=== PATIENT | female | born 1960 | race Caucasian/White ===

== ENCOUNTER 2020-06-13 09:09 | Outpatient (REF) | payer MEDICAID, SELFPAY ==
--- NOTE | ~2020-06-13 | US_ITS ---
EXAMINATION: US SOFT TISSUE NECK CLINICAL INFORMATION: Pain in the throat region. COMPARISON: None TECHNIQUE: Ultrasound of the neck soft tissues is performed with high-frequency greenberg-scale imaging and color Doppler. FINDINGS: Imaging through the anterior and posterior neck reveals no focal abnormality for the very small nonspecific lymph nodes seen. The largest lymph node in left neck measures 0.9 x 0.4 x 0.5 cm. US/US soft tiss head and/or neck IMPRESSION: 1. No abnormal mass or abnormal size lymph nodes seen. 2. If clinically indicated, further evaluation of the neck soft tissues and nodes may be performed with CT soft tissue neck with intravenous contrast.
== END 2020-06-13 09:10 | disposition home or self-care (01) ==
LOC: HO.US 09:09
PROVIDERS: Visit Provider Emergency Medicine
DX: R07.0 Pain in throat (principal)
CPT/HCPCS: 76536

== ENCOUNTER 2022-12-24 13:59 | Outpatient (REF) | payer MEDICAID, SELFPAY ==
[2022-12-24 16:37] LABS: Anion Gap 14 (12-20); Blood Urea Nitrogen 14 mg/dL (9-16); Calcium 9.9 mg/dL (8.4-10.2); Carbon Dioxide 28 mmol/L (22-29); Chloride 106 mmol/L (96-108); Estimated Glomerular Filt Rate > 60; Glucose Random 82 mg/dL (60-115); Potassium 3.9 mmol/L (3.3-5.1); Sodium 144 mmol/L (135-145)
== END 2022-12-24 14:00 | disposition home or self-care (01) ==
LOC: HO.HHCL 13:59
PROVIDERS: Visit Provider Internal Medicine
DX: I10 Essential (primary) hypertension (principal)
CPT/HCPCS: 36415; 80048

== ENCOUNTER 2023-05-14 09:50 | Outpatient (REF) | payer MEDICAID, SELFPAY ==
--- NOTE | ~2023-05-14 | XR_ITS ---
EXAMINATION: XR SHOULDER, LEFT CLINICAL INFORMATION: Chronic pain. COMPARISON: None available. TECHNIQUE: AP external rotation, Grashey, scapular Y, and axillary views of the left shoulder. FINDINGS: Bony alignment and mineralization are normal. The glenohumeral joint is intact and shows minimal osteoarthritic change. The acromioclavicular and coracoclavicular intervals are normal. No fracture or dislocation is seen. There is a tiny distal acromial undersurface osteophyte, and there is significant cortical irregularity and subcortical cyst formation of the greater tuberosity of the proximal left humerus. No soft tissue calcification or foreign body is seen. There is no left pneumothorax. XR/XR shoulder LT min 2V IMPRESSION: 1. 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 2. Findings suggest left rotator cuff impingement, without nathen calcific tendinitis noted.
== END 2023-05-14 09:51 | disposition home or self-care (01) ==
LOC: HO.HHCX 09:50
PROVIDERS: Visit Provider Internal Medicine
DX: M25.512 Pain in left shoulder (principal); G89.29 Other chronic pain
CPT/HCPCS: 73030

== ENCOUNTER 2023-08-25 16:18 | Outpatient (REF) | payer MEDICAID, SELFPAY ==
[2023-08-25 20:05] LABS: Alanine Aminotransferase 29 U/L (0-31); Albumin Level 4.4 g/dL (3.5-5.0); Alkaline Phosphatase 75 U/L (39-117); Anion Gap 15 (12-20); Aspartate Amino Transferase 22 U/L (5-31); Bilirubin Direct < 0.2 mg/dL (0.0-0.5); Bilirubin Total 0.2 mg/dL (0.0-1.0); Blood Urea Nitrogen 22 mg/dL (9-16); Carbon Dioxide 27 mmol/L (22-29); Chloride 106 mmol/L (96-108); Cholesterol 216 mg/dL (<200); Estimated Glomerular Filt Rate > 60; Glucose Random 84 mg/dL (60-115); HDL Cholesterol 49 mg/dL (>40); LDL Cholesterol Calculated 118 mg/dL (<100); Potassium 3.9 mmol/L (3.3-5.1); Sodium 144 mmol/L (135-145); Total Protein 7.6 g/dL (6.5-8.0); Triglycerides 249 mg/dL (<150)
[2023-08-25 22:04] LABS: Reflex LDLD? No
== END 2023-08-25 16:19 | disposition home or self-care (01) ==
LOC: HO.HHCL 16:18
PROVIDERS: Visit Provider Internal Medicine
DX: E78.2 Mixed hyperlipidemia (principal); I10 Essential (primary) hypertension
CPT/HCPCS: 36415; 80053; 80061; 82248

== ENCOUNTER 2024-02-16 | Outpatient (REF) | payer MEDICAID, SELFPAY | END 2024-02-16 00:01 | disposition home or self-care (01) | LOC: HO.HHCLNP | PROVIDERS: Visit Provider Internal Medicine | DX: R10.31 Right lower quadrant pain (principal) | CPT/HCPCS: 87086 ==

== ENCOUNTER 2024-02-18 13:47 | Outpatient (REF) | payer MEDICAID, SELFPAY ==
[2024-02-18 16:08] LABS: MANUAL DIFF FLAG NO
[2024-02-18 16:21] LABS: Basophils Percent Auto 0.5 % (0-2); Eosinophils Percent Auto 0.2 % (0-4); Hematocrit 38.3 % (37.0-47.0); Hemoglobin 12.7 g/dl (12.0-16.0); Imm Gran Abs Auto 0.02 X10*3/uL (0.00-0.03); Imm Gran Pct Auto 0.3 % (0.0-0.4); Lymphocytes Absolute Auto 1.8 X10*3/uL (1.2-4.9); Lymphocytes Percent Auto 27.6 % (20-40); Mean Corpuscular HGB Conc 33.2 g/dl (31.0-35.0); Mean Corpuscular Hemoglobin 30.5 pg (27.0-33.0); Mean Corpuscular Volume 92.1 fL (80.0-98.0); Mean Platelet Volume 10.5 fL (9.4-12.3); Monocytes Absolute Auto 0.6 X10*3/uL (0.1-1.2); Monocytes Percent Auto 8.7 % (2-11); Neutrophils Percent Auto 62.7 % (45-73); Platelet Count 267 X10*3/uL (160-400); Red Blood Count 4.16 X10*6/uL (4.20-5.50); Red Cell Distribution Width 12.4 % (11.0-16.0); White Blood Count 6.3 X10*3/uL (4.8-10.8)
[2024-02-18 16:55] LABS: Erythrocyte Sedimentation Rate 19 MM/HR (0-20)
[2024-02-18 18:22] LABS: Alanine Aminotransferase 36 U/L (0-31); Albumin Level 4.3 g/dL (3.5-5.0); Alkaline Phosphatase 76 U/L (39-117); Anion Gap 12 (12-20); Aspartate Amino Transferase 30 U/L (5-31); Bilirubin Total 0.3 mg/dL (0.0-1.0); Blood Urea Nitrogen 16 mg/dL (9-16); Calcium 9.6 mg/dL (8.4-10.2); Carbon Dioxide 27 mmol/L (22-29); Chloride 103 mmol/L (96-108); Estimated Glomerular Filt Rate > 60; Glucose Random 108 mg/dL (60-115); Sodium 138 mmol/L (135-145); Total Protein 7.5 g/dL (6.5-8.0)
== END 2024-02-18 13:48 | disposition home or self-care (01) ==
LOC: HO.HHCL 13:47
PROVIDERS: Visit Provider Internal Medicine
DX: R10.31 Right lower quadrant pain (principal)
CPT/HCPCS: 36415; 80053; 85025; 85652

== ENCOUNTER 2024-07-14 16:10 | Outpatient (REF) | payer MEDICAID, SELFPAY ==
--- OUTSIDE RECORDS SUMMARY | 2024-07-14 18:00 | XMS_ITS | Encounter Summary ---
Author Organization [employer] [facility] Address [address] [place] [address] [address] [place] [address] Care Team Providers Care Funds Development Director Name Role Phone Antoine Tuttle MD Primary Care Provide r Encounter Details Date Type Department Care Team (Latest Contact Info) Description 10/22/2018 Abstract [facility] CONVERSIONS Dental, Provider, DDS Social History Tobacco Use Types Packs/Day Years Used Date Smoking Tobacco: Never Assessed Comments Unknown Sex and Gender Information Value Date Recorded Sex Assigned at Female 02/03/2022 10:15 AM EDT Legal Sex Female 10:15 AM EDT Gender Identity Female 02/03/2022 10:15 AM EDT Sexual Orientation Straight 02/03/2022 10 :15 AM EDT documented as of this encounter Plan of Treatment Not on file documented as of this encounter Visit Diagnoses Not on filedocumented in this encounter Care Teams Funds Development Director Relationship Specialty Start Date End Date Antoine Tuttle MD [address] [place] [id number] PCP - General Internal Medicine 12/01/13 documented as of this encounter
--- OUTSIDE RECORDS SUMMARY | 2024-07-14 18:00 | XMS_ITS | Clinical Summary ---
Author Organization [facility] [employer] [facility] [employer] Address [address] [facility] [address] [place] [address] Care Team Providers Care Vocational Case Manager Name Role Phone Antoine Tuttle MD Primary Care Provide r Allergies Active Allergy Reactions Criticality Noted Date Comments Other Rash Low 12/04/2018 Espino (fruit) Medications loratadine (Claritin) 10 MG tablet Take 10 mg by mouth in the morning. 2 Active cyclobenzaprine (Flexeril) 5 MG tablet TAKE 1 TO 2 TABLETS BY MOUTH EVERY 8 HOURS NEEDED 2 Active clonazePAM (KlonoPIN) 0.5 MG tabletIndications :Depressive disorder TAKE 1 TABLET BY MOUTH jeffy hora BEFORE de abordar el tosin y puede repetir mientras javier en el tosin para la ansiedad 10 tablet 3 Active diphenhydrAMINE (BENADryl) 25 MG capsule TAKE 1 CAPSULE BY MOUTH ONCE DAILY NEEDED FOR SLEEP 30 capsule 3 3 Active meloxicam (Mobic) 15 MG tabletIndications :Acute pain of right shoulder Take 1 tablet (15 mg) by mouth in the morning. 30 tablet 3 4 Active fluticasone (Flonase) 50 MCG/ACT nasal spray INSTILL 2 SPRAYS IN EACH NOSTRIL ONCE DAILY 48 g 1 4 Active omeprazole (PriLOSEC) [address] capsule TAKE 1 CAPSULE BY MOUTH EVERY DAY BEFORE A MEAL 90 capsule 1 4 Active hydroCHLOROthiazi de (HYDRODiuril) 25 MG tabletIndications :Essential hypertension TAKE 1 TABLET BY MOUTH EVERY MORNING 90 tablet 4 Active lisinopril 20 MG tabletIndications :Essential hypertension TAKE 1 TABLET BY MOUTH EVERY MORNING 90 tablet 4 Active tamsulosin (Flomax) 0.4 MG 24 hr capsule Take 1 capsule (0.4 mg) by mouth Once per day. 30 capsule 4 Active butalbital-acetam inophen-caffeine 50-325-40 MG tabletIndications :History of headache TAKE 1 TABLET BY MOUTH EVERY 6 HOURS NEEDED 15 tablet 1 5 Active amoxicillin-clavu lanate (Augmentin) 875-125 MG tablet Take 1 tablet by mouth 2 times daily for 7 days. 14 tablet 5 07/09/19 25 Active Problems Problem Noted Date Diagnosed Date Diarrhea 07/13/2024 Assessment & Plan (07/13/2024 6:13 PM EDT): Unclear if related to change in dietary habits, increase carb intake. We discussed about increase hydration and, brat diet and advance to soft diet then to high- fiber diet for at least 1 to 2 weeks. Order stool tests and LFTs. Ordered abdominal ultrasound and follow-up with PCP Left leg swelling 07/04/2024 Varicose veins of both lower extremities with in flammation 11/19/2023 Assessment & Plan (11/19/2023 11:26 AM EDT): Pt with varicose veins,will refer to [facility] care 12/09/2022 Assessment & Plan (08/13/2023 3:13 PM EDT): Mammogram: 11/21/2022 Pap Smear: s/p SWATI 2016 Colonoscopy: [facility]. Dr Corona, 2014 Normal Vaccines:. Td: 07/18/2014 Assessment & Plan (12/09/2022 2:15 PM EDT): Mammogram: 11/21/2022 Pap Smear: s/p SWATI 2015 Colonoscopy: [facility]. Dr Corona, 2014 Normal Vaccines:. Td: 07/18/2014 Right groin pain 09/23/2022 Assessment & Plan (09/23/2022 10:52 AM EDT): Most likely adductor sprain, less likely DVT Due to hx DVT, I will order DVT studies Take Tylenol prn pain + Diclofenac gel to affected area Apply dry heat to affected area May need PT if sxs do not improve in 3w History of DVT (deep vein thrombosis) 09/23/2022 Chronic left shoulder pain 06/26/2022 Assessment & Plan (08/13/2023 3:19 PM EDT): Pt with previous c/o left shoulder pain, particuarly when lifting On previous exam, mild decreased ROM, anterior tenderness Suggestive of tendinosis. Pt went for PT evaluation, pt tells me she did not tolerate it She has been taking Meloxicam PRN and Collagen Plain films showed: Minimal osteoarthritic change of the left glenohumeral joint. Findings suggest left rotator cuff impingement, without nathen calcific tendinitis noted. Previous visit I referred her to Ortho for evaluation. Pt did not go Follow up if no improvement. Assessment & Plan (05/14/2023 9:27 AM EST): Pt with c/o left shoulder pain, particuarly when lifting On previous exam, mild decreased ROM, anterior tenderness Suggestive of tendinosis. Pt never had the PT evaluation I ordered Plan: refill (Meloxicam) Plain films ordered Ortho evalauation Follow up if no improvement Assessment & Plan (06/26/2022 3:28 PM EDT): Pt with new c/o right shoulder pain, particuarly when lifting On exam, mild decreased ROm, anterior tenderness Suggestive of tendinosis Plan: NSAIDS (meloxicam) PT eval Plain films Follow up if no improvement Hx of hematuria 03/07/2022 Assessment & Plan (03/11/2022 9:45 AM EST): Not complaining Negative work up as per [facility] urology that included a CT scan of the abdomen 07/20/2018 wnl and a cystoscopy on 10/06/11 NL History of headache 03/07/2022 Assessment & Plan (05/14/2023 9:16 AM EST): Previously c/o persistent bilateral headaches, not improving despite medical treatment. Also c/o forgetfulness. likely due to untreated VICTORINO Seen by Neurology Uses Fioricet PRN MRI of brain 11/2022 was normal aside from a small meningioma Assessment & Plan (12/09/2022 2:16 PM EDT): Previously c/o persistent bilateral headaches, not improving despite medical treatment. Also c/o forgetfulness. likely due to untreated VICTORINO Seen by Neurology currently not complaining MRI of brain 11/2022 was normal aside from a small meningioma Assessment & Plan (03/11/2022 9:44 AM EST): Televisit Previously c/o persistent bilateral headaches, not improving despite medical treatment. Also c/o forgetfulness. likely due to untreated VICTORINO Previously she was referred for a Neurology evaluation currently not complaining MRI of brain 12/01/2019 was normal Meningioma 03/07/2022 Assessment & Plan (05/14/2023 9:17 AM EST): Pt with previous c/o persistent intermittent symptoms of left sided facial numbness, tingling and heaviness, seen at [facility] work up was unrevealing. As part of her work up she had an MRI of brain was negative pt was referred Neurology, last seen 08/2020 Lyme antibodies were negative Pt was seen by Neurology, she had an MRI of the brain at [facility] that showed: a small incidental meningioma 11 mm x 9 x 10 along the floor of the left anterior cranial fossa medially. as well as white matter lesions in a non specific pattern without active blood-brain barrier breakdown one of which might be new since prior study from 2019. No lesions highly characteristic of MS Previous visit she told me all those symptoms had gone away Repeat MRI 11/2022 showed: No intracranial cause for the reported symptoms identified. No evidence of a regional brain parenchymal volume loss pattern. 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 Pt was referred to Neurosurgery by Neurologist. Assessment & Plan (12/09/2022 2:24 PM EDT): Pt with previous c/o persistent intermittent symptoms of left sided facial numbness, tingling and heaviness, seen at [facility] work up was unrevealing. As part of her work up she had an MRI of brain was negative pt was referred Neurology, last seen 08/2020 Lyme antibodies were negative Pt was seen by Neurology, she had an MRI of the brain at [facility] that showed: a small incidental meningioma 11 mm x 9 x 10 along the floor of the left anterior cranial fossa medially. as well as white matter lesions in a non specific pattern without active blood-brain barrier breakdown one of which might be new since prior study from 2019. No lesions highly characteristic of MS Previous visit she told me all those symptoms had gone away Repeat MRI 11/2022 showed: No intracranial cause for the reported symptoms identified. No evidence of a regional brain parenchymal volume loss pattern. 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 Pt was referred to Neurosurgery by Neurologist. Assessment & Plan (03/07/2022 4:07 PM EST): Resolved Pt with previous c/o persistent intermittent symptoms of left sided facial numbness, tingling and heaviness, denies any weakness, denies any slurred speech or any other associated symptoms. she was seen recently at [facility] work up was unrevealing. Of note previously Pt had c/o persistent dizziness, described as sensation of imbalance and spinning , not associated with change in positions, can present itself at rest or with movement, described as moderate and intermittent, associated with left leg numbness, pt also reports decreased hearing unclear etiology. As part of her work up she had an MRI of brain was negative pt was referred Neurology, last seen 08/2020 I discussed with pt if symptoms were to worsen or f she is to develop weakness, slurred speech or imbalance to present herself to the nearest ER Lyme antibodies were negative Pt was finally seen by Neurology, she had a repeat MRI of the brain at [facility] that showed: a small incidental meningioma 11 mm x 9 x 10 along the floor of the left anterior cranial fossa medially. as well as white matter lesions in a non specific pattern without active blood-brain barrier breakdown one of which might be new since prior study from 2019. No lesions highly characteristic of MS Previous visit she told me all those symptoms had gone away Chronic insomnia 03/07/2022 Assessment & Plan (03/11/2022 9:42 AM EST): Televisit Pt Has tried Melatonin in the past with no good results does not want to try anything adictive Uses Benadryl 25 mg po at bedtime PRN Discussed good sleep hygiene habits Hyperlipidemia 02/21/2022 Assessment & Plan (11/19/2023 11:20 AM EDT): Pt here for a follow up Patient with elevated lipids. Most recent lipid profile from: Lab Results Component Value Date TRIG 249 (H) 08/25/2023 TRIG 127 08/05/2022 CHOL 216 (H) 08/25/2023 LDLCHOLCAL 118 (H) 08/25/2023 HDL 49 08/25/2023 Pt stopped taking Atorvastatin after she developed shoulder muscle pain advised to try to adhere to a low cholesterol diet, counseled and educated about diet and exercise, Patient encouraged to come up with a personal goal for weight loss. Plan: Pt would like to try diet and exercise first, will repeat in 4 months Assessment & Plan (08/13/2023 3:22 PM EDT): Pt here for a follow up Patient with elevated lipids. Most recent lipid profile from: 08/05/2022 shows a total cholesterol of: 202 triglycerides of: 127 HDL of: 52 and LDL of: 126 Pt stopped taking Atorvastatin after she developed shoulder muscle pain advised to try to adhere to a low cholesterol diet, counseled and educated about diet and exercise, Patient encouraged to come up with a personal goal for weight loss. Repeat Lipid profile Assessment & Plan (05/14/2023 9:16 AM EST): Pt here for a follow up Patient with elevated lipids. Most recent lipid profile from: 08/05/2022 shows a total cholesterol of: 202 triglycerides of: 127 HDL of: 52 and LDL of: 126 Pt stopped taking Atorvastatin after she developed shoulder muscle pain advised to try to adhere to a low cholesterol diet, counseled and educated about diet and exercise, Patient encouraged to come up with a personal goal for weight loss. Repeat Lipid profile Assessment & Plan (12/09/2022 2:28 PM EDT): Pt here for a follow up Patient with elevated lipids. Most recent lipid profile from: 08/05/2022 shows a total cholesterol of: 202 triglycerides of: 127 HDL of: 52 and LDL of: 126 Pt stopped taking Atorvastatin after she developed shoulder muscle pain advised to try to adhere to a low cholesterol diet, counseled and educated about diet and exercise, Patient encouraged to come up with a personal goal for weight loss. Assessment & Plan (06/26/2022 9:43 AM EDT): Pt here for a follow up Patient with elevated lipids. Most recent lipid profile from: 05/08/2020 shows a total cholesterol of: 220 triglycerides of: 123 HDL of: 47 and LDL of: 148 Pt stopped taking Atorvastatin after she developed shoulder muscle pain Lipid profile ordered again pt did not have done the one I ordered back in March advised to try to adhere to a low cholesterol diet, counseled and educated about diet and exercise, Patient encouraged to come up with a personal goal for weight loss. Assessment & Plan (03/11/2022 9:46 AM EST): Televisit Patient with elevated lipids. Most recent lipid profile from: 05/08/2020 shows a total cholesterol of: 220 triglycerides of: 123 HDL of: 47 and LDL of: 148 LDL dropped from 160 to 148, pt is confident she can bring it underneath 130 with diet and exercise, before we consider another statin Pt stopped taking Atorvastatin after she developed shoulder muscle pain Lipid profile ordered advised to try to adhere to a low cholesterol diet, counseled and educated about diet and exercise, Patient encouraged to come up with a personal goal for weight loss. Allergic rhinitis due to pollen 10/16/2017 Assessment & Plan (03/11/2022 9:43 AM EST): Televisit Not complaining On Flonase and Loratadine PRN Obstructive sleep apnea syndrome 01/06/2017 Assessment & Plan (03/11/2022 9:42 AM EST): Televisit Doing well Finally pt underwent Sleep study that confirmed the diagnosis of Moderately severe VICTORINO. on 06/30/2018 she had a titration study recommendation was Auto Cpap with pressure of 6 to 16 cm Using machine at home with good results Essential hypertension 02/01/2015 Assessment & Plan (11/19/2023 12:41 PM EDT): Pt is here for a follow up BP today is elevated. She is not checking her BP at home She is on a regimen of: Hctz 25 mg po daily and Lisinopril 20 mg po daily. lytes, Bun and Cr 08/29/2023 wnl. Pt does not want to go up on the dose of meds yet. Wants to loose weight and see if that makes a difference Plan: Continue current regimen for now, check BP at home every other day and report once a week if systolic BP > 140 If BP still elevated on next visit will increase dose of Lisinopril Ct done while undergoing Hematuria work up showed : 2 to 3 mm pulmonary nodules rt lung base that according to radiologist in the absence of known malignancy or hx of smoking, no follow up was indicated. Assessment & Plan (08/13/2023 3:11 PM EDT): Pt is here for a follow up BP today is controlled She is on a regimen of: Hctz 25 mg po daily and Lisinopril 20 mg po daily. lytes, Bun and Cr 12/24/2022 wnl. Plan: Continue current regimen Ct done while undergoing Hematuria work up showed : 2 to 3 mm pulmonary nodules rt lung base that according to radiologist in the absence of known malignancy or hx of smoking, no follow up was indicated. Assessment & Plan (05/14/2023 9:15 AM EST): Pt is here for a follow up Patient BP today is controlled She is on a regimen of: Hctz 25 mg po daily and Lisinopril 20 mg po daily. lytes, bun and Cr 12/24/2022 wnl. Plan: Continue current regimen Ct done while undergoing Hematuria work up showed : 2 to 3 mm pulmonary nodules rt lung base that according to radiologist in the absence of known malignancy or hx of smoking, no follow up was indicated. Assessment & Plan (12/09/2022 2:13 PM EDT): Pt is here for a follow up Patient BP is controlled She is on a regimen of: Hctz 25 mg po daily and Lisinopril 20 mg po daily. lytes, bun and Cr 04/22/2022 wnl. Plan: Continue current regimen Ct done while undergoing Hematuria work up showed : 2 to 3 mm pulmonary nodules rt lung base that according to radiologist in the absence of known malignancy or hx of smoking, no follow up was indicated. Assessment & Plan (09/23/2022 10:53 AM EDT): Uncontrolled today, likely due to pain No change in meds, she will fu w PCP Check BP at home and recons prn if BP > 160/100 Assessment & Plan (06/26/2022 9:41 AM EDT): Pt is here for a follow up Patient BP is controlled, per her report She is on a regimen of: Hctz 25 mg po daily and Lisinopril 20 mg po daily. lytes, bun and Cr 04/22/2022 wnl. Plan: Continue current regimen Ct done while undergoing Hematuria work up showed : 2 to 3 mm pulmonary nodules rt lung base that according to radiologist in the absence of known malignancy or hx of smoking, no follow up was indicated. Assessment & Plan (03/11/2022 9:18 AM EST): Televisit f/u Patient BP is controlled, per her report She is on a regimen of: Hctz 25 mg po daily and Lisinopril 20 mg po daily. lytes, bun and Cr 12/20/2020 wnl. Today will order a repeat Plan: Continue current regimen Ct done while undergoing Hematuria work up showed : 2 to 3 mm pulmonary nodules rt lung base that according to radiologist in the absence of known malignancy or hx of smoking, no follow up was indicated. Depressive disorder 10/16/2011 Assessment & Plan (03/11/2022 9:44 AM EST): Televisit Pt [place] She has also a Hx of Panic attacks. She is currently on Fluoxetine 40 mg op daily And uses Klonopin 0.5 prn BID for panic attacks Plan: Continue current regimen She has been referred for psychotherapy but was never seen. Obesity 10/16/2011 Assessment & Plan (05/14/2023 9:22 AM EST): Discussed diet and exercise Assessment & Plan (06/26/2022 3:09 PM EDT): Discussed diet and exercise Pt was able to loose 5 lbs since last visit I congratulated her in her efforts Assessment & Plan (03/11/2022 9:43 AM EST): Discussed diet and exercise Resolved Problems Problem Noted Date Diagnosed Date Resolved Date Hip pain 10/16/2017 03/07/2022 Iron deficiency anemia 02/01/201503/07 Lumbago 04/06/1958 03/11/2022 Encounters Date Type Department Care Team Description 07/13/2024 5:40 PM EDT Office Visit [facility] [address] [place] [id number] Cary Gibson MD Diarrhea, unspecified type (Primary Dx); Periumbilical mass 07/01/2024 2:20 PM EDT Office Visit [facility] [address] [place] [phone] Melissa Worthy MD Left leg swelling (Primary Dx); Neck pain 06/17/2024 Population Health Risk Score [facility] [address] [id number] Provider, Population Health Generic 06/08/2024 Telephone [facility] MED[facility] [address] [place] [phone] Antoine Tuttle MD September05/12/2024 Refill [facility] [address] [place] [address] Antoine Tuttle MD History of headache from Last 3 Months Immunizations Name Administration Dates Next Due Influenza injectable quadriv alent preservative free 04/05/2019 Moderna Covid-19 Vaccine 12+ 05/01/2021,08/15/19 21,07/17/2020 TD (adult), 2 Lf tetanus tox oid, preservative free, adsorbed 12/20/2002 Tdap 07/18/2014 Social History Tobacco Use Types Packs/Day Years Used Date Smoking Tobacco: Never Smokeless Tobacco: Never Tobacco Cessation:Counseling Given: Not Answered Alcohol Use Standard Drinks/Week Comments Defer 0 (1 standard drink = 0.6 oz pur e alcohol) Depression Answer Date Recorded Patient Health Questionnaire-9 Score 0 11/19/2023 Patient Health Questionnaire-9 Score 0 11/19/2023 Last PHQ-9: Questionnaire Data Not on file 0 11/19/2023 Housing Stability Answer Date Recorded What is your housing situation today? I have anca ball 08/04/[address] you li ve. Do you have problems with any of the following? None of the above 08/04/2023 Food Insecurity Answer Date Recorded Within the past 12 months, y ou worried that your food would run out before you got money to buy more: Never True 08/04/2023 Within the past 12 months,th e food you bought just didn't last and you didn't have enough money to get more: Never True Transportation Answer Date Recorded In the past 12 months, has l ack of transportation kept you from medical appts, meetings, work or from getting things needed for daily living? No 08/04/2023 Utilities Answer Date Recorded In the past 12 months, has t he electric, gas, oil or water company threatened to shut off services in your home? No 08/04/2023 Depression Answer Date Recorded Patient Health Questionnaire-2 Score 0 11/19/2023 Comments Unknown Sex and Gender Information Value Date Recorded Sex Assigned at Female 02/03/2022 10:15 AM EDT Legal Sex Female 10:15 AM EDT Gender Identity Female 02/03/2022 10:15 AM EDT Sexual Orientation Straight 02/03/2022 10 :15 AM EDT Last Filed Vital Signs Vital Sign Reading Time Taken Comments Blood Pressure 139/83 07/13/2024 5:20 PM EDT Pulse 66 07/13/2024 5:20 PM EDT Temperature 36.1 ??C (96.9 ??F) 07/13/2024 5:20 PM ED T Respiratory Rate 16 07/13/2024 5:20 PM EDT Oxygen Saturation 98% 07/13/2024 5:20 PM EDT Inhaled Oxygen Concentration - - Weight 84.1 kg (185 lb 6 oz) 07/13/2024 5:20 PM EDT Height 162.6 cm (5' 4 ) 07/13/2024 5:20 PM EDT Body Mass Index 31.82 07/13/2024 5:20 PM EDT Plan of Treatment Health Maintenance Due Date Last Done Comments CT Colonography 1961 FIT DNA/Cologuard 1961 FIT 1961 FOBT 1961 HIV Screening 1961 Sigmoidoscopy 1961 Alcohol/Substance Use Screening 1973 Hepatitis C Screening 07/26/1979 Pneumococcal Vaccine: 50+ Years (1 of 1 - PCV) 07/26/2011 Zoster Vaccines (1 of 2) 07/26/2011 COVID-19 Vaccine (4 - season) 2023 05/01/2021, 08/14/2020, 07/17/2020 Influenza Vaccine (#1) 2023 04/05/2019 Colonoscopy 03/15/2024 03/15/2014 Colorectal Cancer Screening 03/15/2024 DTaP/Tdap/Td Vaccines (2 - Td or Tdap) 07/18/2024 07/18/2014, 12/20/2002 SDOH Screening 08/03/2024 08/04/2023 Depression Screening 11/18/2024 11/19/2023, 11/19/19 24 Mammogram 11/21/2024 11/21/2022, 0811/2022, 06/25/2021, Additional history exists Tobacco Screening 07/13/2025 07/13/2024 Lipid Panel 08/24/2028 08/25/2023, 05/0 05/2022, 12/20/2020, Additional history exists RSV Patients and Patients Aged 60 years or older (1 - 1-dose 75+ series) 2036 HIB Vaccines Aged Out No longer eligi ble based on patient's age to complete this topic HPV Vaccines Aged Out No longer eligi ble based on patient's age to complete this topic Hepatitis A Vaccines Aged Out No long er eligible based on patient's age to complete this topic Hepatitis B Vaccines Aged Out No long er eligible based on patient's age to complete this topic IPV Vaccines Aged Out No longer eligi ble based on patient's age to complete this topic Meningococcal Vaccine Aged Out No ricky tena eligible based on patient's age to complete this topic RSV under 20 months Aged Out No longe r eligible based on patient's age to complete this topic Rotavirus Vaccines Aged Out No longer eligible based on patient's age to complete this topic Procedures Procedure Name Priority Date/Time Associated Diagnosis Comments LIPID PANEL, STANDARD Routine 08/25/2023 4:20 PM EDT Essential hypertension HM MAMMOGRAPHY Routine 06/25/2021 COLONOSCOPY Routine 03/15/2014 from Last 3 Months or Most Recently Relevant to Health Maintenance Results * (ABNORMAL) Lipid Panel, Standard (08/25/2023 4:20 PM EDT) Triglycerides 249(H) <150 mg/dL [facility] Comment:Desirable Triglyceri de: less than 150 mg/dLBorderline High Triglyceride 150-199 mg/dLHigh Triglyceride: 200-499 mg/dLVery High Triglyceride: greater than or equal to 5OO mg/dL Cholesterol 216(H) <200 mg/dL [facility] Comment:Desirable Cholestero l: less than 200 mg/dLBorderline High Cholesterol: 200-239 mg/dLHigh Cholesterol: greater than 239 mg/dL LDL Cholesterol Calculated 118(H) <100 mg/dL [facility] Comment:Desirable LDL: less than 100 mg/dLNear Optimal/Above Optimal LDL: 110- 129 mg/dLBorderline High LDL: 130-159 mg/dLHigh LDL: 160-189 mg/dLVery High LDL: greater than or equal to 190 mg/dL HDL Cholesterol 49 >40 mg/dL [facility] Comment:Desirable HDL: great er than 40 mg/dL Note: This HDL assay may give artificially low results in patients with liver disease. Blood Venous blood specimen / Unknown 08/25/2023 4:20 PM EDT 08/25/2023 6:32 PM EDT us Antoine Esparza MD LAB BLOOD ORDERABLES Final Result [facility] [address] [place] [address] [phone] * Mammography (06/25/2021) Mammogram Bi-Rads Anatomical Region Laterality Modality Other us Historical Provider HEALTH MAINTENANCE Final Result * Colonoscopy (03/15/2014) Colonoscopy Normal Historical Provider HEALTH MAINTENANCE Edited Result - Final from Last 3 Months or Most Recently Relevant to Health Maintenance Insurance [facility] C3 HSN FULL Care Teams Vocational Case Manager Relationship Specialty Start Date End Date Antoine Tuttle MD [address] [place] [phone] PCP - General Internal Medicine 12/01/13
--- OUTSIDE RECORDS SUMMARY | 2024-07-14 18:00 | XMS_ITS | Encounter Summary ---
Author Organization [employer] Address [address] [place] [address] 7t [place] [address] Care Team Providers Care Alternative Energy Engineer Name Role Phone Antoine Tuttle MD Primary Care Provide r Reason for Referral * Imaging (Routine) - Authorized Specialty Diagnoses / Procedures Referred By Contac t Referred To Contact Radiology Diagnoses Diarrhea, unspecified type Periumbilical mass Procedures US Abdomen Complete Cary Gibson MD [address] [place] [phone] Phone: tel: fax: [address] Phone: tel: fax: Referral ID Status Reason Start Date Expiration Date V isits Requested Visits Authorized [id number] Authorized 07/13/2024 07/13/2025 1 1 Reason for Visit * Reason Comments Diarrhea GI Problem Encounter Details Date Type Department Care Team (Late st Contact Info) Description 07/13/2024 5:40 PM EDT Office Visit [facility] [address] [place], [place] [phone] Cary Gibson MD [address] [place] [address] [phone] Diarrhea, unspecified type (Primary Dx); Periumbilical mass Social History Tobacco Use Types Packs/Day Years [...] AM EDT documented as of this encounter Last Filed Vital Signs Vital Sign Reading [...] Mass Index 31.82 07/13/2024 5:20 PM EDT documented in this encounter Progress Notes * Cary Gibson MD - 07/13/2024 5:40 PM EDT Images from the original note were not included. SUBJECTIVE: Princess Fuchs is a 63 y.o. year old female who presents for Walk In Center/diarrhea . Denies recent illness, injury, or hospitalization. Acute Concerns: Patient complaining 2 to 4 months of postprandial episodes of soft, foul smell greenish/brown stools, approximately 2 to 3/day. She has not noticed any difference with the type of food that she has, she does not have postprandial abdominal pain, melena, BRBPR, vomiting or nausea. She does not have any fever and she has not noticed any weight loss. She she tries to eat mostly healthy foot but occasionally will skip meals or have fast food as she works 10+ hours per day and most of it overnight. She has not traveled within the past 6 months, there are no sick contacts. Social History Social History Narrative Not on file Patient Active Problem List Diagnosis Allergic rhinitis due to pollen Depressive disorder Essential hypertension Hyperlipidemia Obesity Obstructive sleep apnea syndrome Hx of hematuria History of headache Meningioma (CMS/HCC) Chronic insomnia Chronic left shoulder pain Right groin pain History of DVT (deep vein thrombosis) Preventative health care Varicose veins of both lower extremities with inflammation Left leg swelling Diarrhea No family history on file. Review of Systems Constitutional: Negative for chills, fatigue and fever. HENT: Negative for congestion, ear pain, nosebleeds, rhinorrhea, sinus pressure, sore throat and trouble swallowing. Eyes: Negative for pain and discharge. Respiratory: Negative for cough, chest tightness and shortness of breath. Cardiovascular: Negative for chest pain, palpitations and leg swelling. Gastrointestinal: Positive for diarrhea. Negative for abdominal pain, blood in stool, constipation and nausea. Endocrine: Negative for polydipsia and polyuria. Genitourinary: Negative for dysuria, frequency, genital sores, pelvic pain and vaginal discharge. Musculoskeletal: Negative for back pain and neck pain. Skin: Negative for rash. Allergic/Immunologic: Negative for environmental allergies. Neurological: Negative for dizziness, seizures, weakness, light-headedness and headaches. Hematological: Negative for adenopathy. Psychiatric/Behavioral: Negative for agitation, behavioral problems, self-injury and suicidal ideas. OBJECTIVE: Vitals: 07/13/24 1720 BP: 139/83 Pulse: 66 Resp: 16 Temp: 96.9 ??F (36.1 ??C) SpO2: 98% Physical Exam Constitutional: Appearance: Normal appearance. HENT: Right Ear: Tympanic membrane and ear canal normal. Left Ear: Tympanic membrane and ear canal normal. Mouth/Throat: Mouth: Mucous membranes are moist. Pharynx: No oropharyngeal exudate or posterior oropharyngeal erythema. Eyes: Pupils: Pupils are equal, round, and reactive to light. Cardiovascular: Rate and Rhythm: Normal rate and regular rhythm. Heart sounds: No murmur heard. Pulmonary: Breath sounds: Normal breath sounds. No wheezing. Abdominal: General: Bowel sounds are normal. Palpations: Abdomen is soft. There is mass (Overall, nontender 4 x 2 cm supraumbilical mass, mobile). Tenderness: There is no abdominal tenderness. Musculoskeletal: General: No tenderness. Normal range of motion. Cervical back: Normal range of motion. No tenderness. Skin: General: Skin is warm. Neurological: General: No focal deficit present. Mental Status: She is alert and oriented to person, place, and time. Psychiatric: Mood and Affect: Mood normal. Problem List Items Addressed This Visit Diarrhea - Primary Unclear if related to change in dietary habits, increase carb intake. We discussed about increase hydration and, brat diet and advance to soft diet then to high-fiber diet for at least 1 to 2 weeks. Order stool tests and LFTs. Ordered abdominal ultrasound and follow-up with PCP Relevant Orders Fecal Fat, Qualitative CDiff Gene PCR Hepatic Function Panel Stool culture Fecal Leukocycte Stain US Abdomen Complete Other Visit Diagnoses Periumbilical mass Relevant Orders US Abdomen Complete Follow Up: Current Outpatient Medications on File Prior to Visit Medication Sig Dispense Refill [] amoxicillin-clavulanate (Augmentin) 875-125 MG tablet Take 1 tablet by mouth 2 times daily for 7 days. 14 tablet 0 psiqrctvpo-rpmptkdrvbqaw-ueaijcko 50-325-40 MG tablet TAKE 1 TABLET BY MOUTH EVERY 6 HOURS NEEDED 15 tablet 1 clonazePAM (KlonoPIN) 0.5 MG tablet TAKE 1 TABLET BY MOUTH jeffy hora BEFORE de abordar el tosin y puede repetir mientras javier en el tosin para la ansiedad 10 tablet 0 cyclobenzaprine (Flexeril) 5 MG tablet TAKE 1 TO 2 TABLETS BY MOUTH EVERY 8 HOURS NEEDED diphenhydrAMINE (BENADryl) 25 MG capsule TAKE 1 CAPSULE BY MOUTH ONCE DAILY NEEDED FOR SLEEP 30 capsule 3 fluticasone (Flonase) 50 MCG/ACT nasal spray INSTILL 2 SPRAYS IN EACH NOSTRIL ONCE DAILY 48 g 1 hydroCHLOROthiazide (HYDRODiuril) 25 MG tablet TAKE 1 TABLET BY MOUTH EVERY MORNING 90 tablet 0 lisinopril 20 MG tablet TAKE 1 TABLET BY MOUTH EVERY MORNING 90 tablet 0 loratadine (Claritin) 10 MG tablet Take 10 mg by mouth in the morning. meloxicam (Mobic) 15 MG tablet Take 1 tablet (15 mg) by mouth in the morning. 30 tablet 3 omeprazole (PriLOSEC) [address] capsule TAKE 1 CAPSULE BY MOUTH EVERY DAY BEFORE A MEAL 90 capsule 1 tamsulosin (Flomax) 0.4 MG 24 hr capsule Take 1 capsule (0.4 mg) by mouth Once per day. 30 capsule 0 No current facility-administered medications on file prior to visit. documented in this encounter Miscellaneous Notes * Assessment & Plan Note - Cary Gibson MD - 07/13/2024 6:13 PM EDT Associated Problem(s): Diarrhea Unclear if related to change in dietary habits, increase carb intake. We discussed about increase hydration and, brat diet and advance to soft diet then to high-fiber diet for at least 1 to 2 weeks. Order stool tests and LFTs. Ordered abdominal ultrasound and follow-up with PCP documented in this encounter Plan of Treatment Scheduled Orders Name Type Priority Associated Diagnoses Orde r Schedule Fecal Fat, Qualitative Lab Routine Diarrhea, unspecified type Expected: 07/13/2024 (Approximate), Expires: 07/13/2025 CDiff Gene PCR Lab Routine Diarrhea, unspecified type Expected: 07/13/2024 (Approximate), Expires: 07/13/2025 Hepatic Function Panel Lab Routine Diarrhea, unspecified type Expected: 07/13/2024 (Approximate), Expires: 07/13/2025 Stool culture Microbiology Routine Diarrhea, unspecified type Expected: 07/13/2024 (Approximate), Expires: 07/13/2025 Fecal Leukocycte Stain Lab Routine Diarrhea, unspecified type Expected: 07/13/2024 (Approximate), Expires: 07/13/2025 US Abdomen Complete Imaging Routine Diarrhea, unspecified type Periumbilical mass Expected: 07/13/2024 (Approximate), Expires: 07/13/2025 documented as of this encounter Visit Diagnoses Diagnosis Diarrhea, unspecified type- Primary Periumbilical mass Abdominal or pelvic swelling, mass or lump, periumbilic documented in this encounter Additional Health Concerns Assessment Noted Time PHQ-9 Depression Total Score: 0 11/19/19 24 11:09 AM EDT documented as of this encounter Care Teams Alternative Energy Engineer Relationship Specialty Start Date End Date Antoine Tuttle MD [address] [place] [phone] PCP - General Internal Medicine 12/01/13 documented as of this encounter
--- OUTSIDE RECORDS SUMMARY | 2024-07-14 18:00 | XMS_ITS | Encounter Summary ---
Author Organization [employer] Address [address] 7[address] [place] [address] Care Team Providers Care Shop Foreman Name Role Phone Antoine Tuttle MD Primary Care Provide r Reason for Visit * Reason Onset Date Comments Appointment Request 04/08/2023 Medication Reaction 04/08/2023 Encounter Details Date Type Department Care Team ([facility] st Contact Info) Description 04/08/2023 Telephone [facility] [address] [place], [place] [phone] Antoine Tuttle MD [address] [place], [place] [phone] Appointment Request; Medication Reaction Social History Tobacco Use Types Packs/Day Years Used Date Smoking Tobacco: Never Smokeless Tobacco: Never Alcohol Use Standard Drinks/Week Comments Defer 0 (1 standard drink = 0.6 oz pur e alcohol) Housing Stability Answer Date Recorded What is your housing situation today? I have anca ball 01/19/[address] you li ve. Do you have problems with any of the following? None of the above 01/19/2023 Food Insecurity Answer Date Recorded Within the past 12 months, y ou worried that your food would run out before you got money to buy more: Never True 01/19/2023 Within the past 12 months,th e food you bought just didn't last and you didn't have enough money to get more: Never True Transportation Answer Date Recorded In the past 12 months, has l ack of transportation kept you from medical appts, meetings, work or from getting things needed for daily living? No 01/19/2023 Utilities Answer Date Recorded In the past 12 months, has t he electric, gas, oil or water company threatened to shut off services in your home? No 01/19/2023 Depression Answer Date Recorded Patient Health Questionnaire-2 Score 0 03/11/2022 Comments Unknown Sex and Gender Information Value Date Recorded Sex Assigned at Female 02/03/2022 10:15 AM EDT Legal Sex Female 10:15 AM EDT Gender Identity Female 02/03/2022 10:15 AM EDT Sexual Orientation Straight 02/03/2022 10 :15 AM EDT documented as of this encounter Miscellaneous Notes * Telephone Encounter - Arti Oliver - 04/13/2023 1:57 PM EST PT came in requesting a possible MED change. PT states that she has been taking Jduebeoisq-nwghdnpnqdskl-seqdhhmh 50-325-40 MG TABLET for headaches and lately she has been waking up everyday with headaches, she would like a possible MG increase or a higher quantity. * Telephone Encounter - Stas Esparza - 04/08/2023 8:33 AM EST Tc from patient calling to schedule a follow up appt for HTN however bid writer does not see anything available documented in this encounter Plan of Treatment Not on file documented as of this encounter Visit Diagnoses Not on filedocumented in this encounter Care Teams Shop Foreman Relationship Specialty Start Date End Date Antoine Tuttle MD [address] [place] [phone] PCP - General Internal Medicine 12/01/13 documented as of this encounter
--- OUTSIDE RECORDS SUMMARY | 2024-07-14 18:00 | XMS_ITS | Encounter Summary ---
Author Organization [employer] [facility] Address [address] [place] [address] 7t [place] [address] Care Team Providers Care Secy Name Role Phone Antoine Tuttle MD Primary Care Provide r Encounter Details Date Type Department Care Team (Late st Contact Info) Description 08/14/2022 Abstract [facility] [address] [place] [address] Antoine Tuttle MD [address] [place], [place] [phone] Social History Tobacco Use Types Packs/Day Years Used Date Smoking Tobacco: Never Smokeless Tobacco: Never Alcohol Use Standard Drinks/Week Comments Defer 0 (1 standard drink = 0.6 oz pur e alcohol) Depression Answer Date Recorded Patient Health Questionnaire-2 [...] on filedocumented in this encounter Care Teams Secy Relationship Specialty Start Date End Date Antoine Tuttle MD [address] [place], [place] [phone] PCP - General Internal Medicine 12/01/13 documented as of this encounter
[2024-07-14 18:05] LABS: Alanine Aminotransferase 86 U/L (0-31); Albumin Level 4.2 g/dL (3.5-5.0); Alkaline Phosphatase 72 U/L (39-117); Aspartate Amino Transferase 53 U/L (5-31); Bilirubin Direct 0.1 mg/dL (0.0-0.5); Bilirubin Total 0.3 mg/dL (0.0-1.0); Cholesterol 177 mg/dL (<200); HDL Cholesterol 41 mg/dL (>40); LDL Cholesterol Calculated 103 mg/dL (<100); Total Protein 7.2 g/dL (6.5-8.0); Triglycerides 168 mg/dL (<150)
== END 2024-07-14 16:11 | disposition home or self-care (01) ==
LOC: HO.HHCL 16:10
PROVIDERS: Visit Provider Internal Medicine
DX: R19.7 Diarrhea, unspecified (principal); I10 Essential (primary) hypertension; E78.2 Mixed hyperlipidemia
CPT/HCPCS: 36415; 80061; 80076

== ENCOUNTER 2024-07-15 16:03 | Outpatient (REF) | payer MEDICAID, SELFPAY ==
--- OUTSIDE RECORDS SUMMARY | 2024-07-15 16:06 | XMS_ITS | Encounter Summary ---
Author Organization [employer] Address [address] [place] [address] Care Team Providers Care Quill Picking Machine Operator Name Role Phone Antoine Tuttle MD Primary Care Provide r Reason for Visit * Reason Onset Date Comments Appointment Request 04/08/2023 Medication Reaction 04/08/2023 Encounter Details Date Type Department Care Team ([facility] st Contact Info) Description 04/08/2023 Telephone [facility] [address] [place], [place] [phone] Antoine Tuttle MD [address] [place], [place] [phone] Appointment Request; Medication Reaction Social History Tobacco [...] PT states that she has been taking Juutgyynxk-wkzkxwcmezmda-epocpggg 50-325-40 MG TABLET for headaches and lately she has been waking up everyday with headaches, she would like a possible MG increase or a higher quantity. * Telephone Encounter - Stas Esparza - 04/08/2023 8:33 AM EST Tc from patient calling to schedule a follow up appt for HTN however brief writer does not see anything available documented in this encounter Plan of Treatment Not on file documented as of this encounter Visit Diagnoses Not on filedocumented in this encounter Care Teams Quill Picking Machine Operator Relationship Specialty Start Date End Date Antoine Tuttle MD [address] [place] [phone] PCP - General Internal Medicine 12/01/13 documented as of this encounter
--- OUTSIDE RECORDS SUMMARY | 2024-07-15 16:06 | XMS_ITS | Encounter Summary ---
Author Organization [employer] Address [address] [place] [address] 7t [place] [address] Care Team Providers Care Sediment Remediation Consultant Name Role Phone Antoine Tuttle MD Primary Care Provide r Reason for Referral * Imaging (Routine) - Authorized Specialty Diagnoses / Procedures Referred By Contac t Referred To Contact Radiology Diagnoses Diarrhea, unspecified type Periumbilical mass Procedures US Abdomen Complete Cary Gibson MD [address] [place] [phone] Phone: tel: fax: [address] Phone: tel: fax: Referral ID Status Reason Start Date Expiration Date V isits Requested Visits Authorized [id number] Authorized 07/13/2024 07/13/2025 1 1 Reason for Visit * Reason Comments Diarrhea GI Problem Encounter Details Date Type Department Care Team (Late st Contact Info) Description 07/13/2024 5:40 PM EDT Office Visit [facility] [address] [place], [place] [phone] Cary Gibson MD [address] [place] [address] [phone] Diarrhea, unspecified type (Primary Dx); Periumbilical mass [...] daily for 7 days. 14 tablet 0 mgipfxkxyp-cajdmizuvmyet-eufcnizu 50-325-40 MG tablet TAKE 1 TABLET BY [...] Expires: 07/13/2025 documented as of this encounter Procedures Procedure Name Priority Date/Time Associated Diagnosis Comments HEPATIC FUNCTION PANEL Routine 07/14/2024 4:13 PM EDT Diarrhea, unspecified type documented in this encounter Results * (ABNORMAL) Hepatic Function Panel (07/14/2024 4:13 PM EDT) Bilirubin, Total 0.3 0.0 - 1.0 mg/dL [facility] Bilirubin, Direct 0.1 0.0 - 0.5 mg/dL [facility] Aspartate Amino Transferase 53(H) 5 - 31 U/L [facility] Alanine Aminotransferase 86(H) 0 - 31 U/L [facility] Total Protein 7.2 6.5 - 8.0 g/dL [facility] Albumin Level 4.2 3.5 - 5.0 g/dL [facility] Alkaline Phosphatase 72 39 - 117 U/L [facility] Blood Venous blood specimen / Unknown 07/14/2024 4:13 PM EDT 07/14/2024 5:36 PM EDT us Cary Gibson MD LAB BLOOD ORDERABLES Fin al Result [facility] [address] [place] [phone] documented in this encounter Visit Diagnoses Diagnosis Diarrhea, unspecified type- Primary Periumbilical mass Abdominal or pelvic swelling, mass or lump, periumbilic documented in this encounter Additional Health Concerns Assessment Noted Time PHQ-9 Depression Total Score: 0 11/19/19 24 11:09 AM EDT documented as of this encounter Care Teams Sediment Remediation Consultant Relationship Specialty Start Date End Date Antoine Tuttle MD [address] [place] [phone] PCP - General Internal Medicine 12/01/13 documented as of this encounter
--- OUTSIDE RECORDS SUMMARY | 2024-07-15 16:06 | XMS_ITS | Encounter Summary ---
Author Organization [employer] [facility] Address [address] [place] [address] 7t [place] [address] Care Team Providers Care Apprise Counselor Name Role Phone Antoine Tuttle MD Primary Care Provide r Encounter Details Date Type Department Care Team (Latest Contact Info) Description 10/22/2018 Abstract [facility] CONVERSIONS Dental, Provider, DDS Social [...] on filedocumented in this encounter Care Teams Apprise Counselor Relationship Specialty Start Date End Date Antoine Tuttle MD [address] [place] [phone] PCP - General Internal Medicine 12/01/13 documented as of this encounter
--- OUTSIDE RECORDS SUMMARY | 2024-07-15 16:06 | XMS_ITS | Clinical Summary ---
Author Organization [employer] Address [address] [facility] [address]t [place] [address] Care Team Providers Care Umbrella Mender Name Role Phone Antoine Tuttle MD Primary [...] EDT): Pt with varicose veins,will refer to [facility] care 12/09/2022 Assessment & Plan (08/13/2023 3:13 PM EDT): Mammogram: 11/21/2022 Pap Smear: s/p SWATI 2016 Colonoscopy: [facility] Dr Corona, 2014 Normal Vaccines:. Td: 07/18/2014 Assessment & Plan (12/09/2022 2:15 PM EDT): Mammogram: 11/21/2022 Pap Smear: s/p SWATI 2015 Colonoscopy: [facility]. Dr Corona, 2014 Normal Vaccines:. Td: [...] Findings suggest left rotator cuff impingement, without nathne calcific tendinitis noted. Previous visit I referred [...] Not complaining Negative work up as per [facility] urology that included a CT scan [...] facial numbness, tingling and heaviness, seen at [facility] work up was unrevealing. As part of her work up she had an MRI of brain was negative pt was referred Neurology, last seen 08/2020 Lyme antibodies were negative Pt was seen by Neurology, she had an MRI of the brain at [facility] that showed: a small incidental meningioma 11 [...] facial numbness, tingling and heaviness, seen at [facility] work up was unrevealing. As part of her work up she had an MRI of brain was negative pt was referred Neurology, last seen 08/2020 Lyme antibodies were negative Pt was seen by Neurology, she had an MRI of the brain at [facility] that showed: a small incidental meningioma 11 [...] associated symptoms. she was seen recently at [facility] work up was unrevealing. Of note previously [...] a repeat MRI of the brain at [facility] that showed: a small incidental meningioma 11 [...] Description 07/13/2024 5:40 PM EDT Office Visit [facility] [address] [place] [phone] Cary Gibson MD Diarrhea, unspecified type (Primary Dx); Periumbilical mass 07/01/2024 2:20 PM EDT Office Visit [facility] [address] [place] [phone] Melissa Worthy MD Left leg swelling (Primary Dx); Neck pain 06/17/2024 Population Health Risk Score [facility] [address] [phone] Provider, Population Health Generic 06/08/2024 Telephone [facility] [address] [place] [phone] Antoine Tuttle MD September05/12/2024 Refill [facility] [address] [place] [address] Antoine Tuttle MD History of headache from [...] 11/18/2024 11/19/2023, 11/19/19 24 Mammogram 11/21/2024 11/21/2022, 11/04, 06/25/2021, Additional history exists Tobacco Screening 07/13/2025 07/13/2024 Lipid Panel 07/14/2029 07/14/2024, 0504/2023, 08/05/2022, Additional history exists RSV Patients and Patients [...] 07/14/2024 4:13 PM EDT Diarrhea, unspecified type LIPID PANEL, STANDARD Routine 07/14/2024 4:13 PM EDT Essential hypertension Mixed hyperlipidemia HM MAMMOGRAPHY Routine 06/25/2021 COLONOSCOPY Routine 03/15/2014 from Last 3 Months or Most Recently Relevant to Health Maintenance Results * (ABNORMAL) Hepatic Function Panel (07/14/2024 4:13 PM EDT) Bilirubin, Total 0.3 0.0 - 1.0 mg/dL [facility] Bilirubin, Direct 0.1 0.0 - 0.5 mg/dL [facility] Aspartate Amino Transferase 53(H) 5 - 31 U/L [facility] Alanine Aminotransferase 86(H) 0 - 31 U/L [facility] Total Protein 7.2 6.5 - 8.0 g/dL [facility] Albumin Level 4.2 3.5 - 5.0 g/dL [facility] Alkaline Phosphatase 72 39 - 117 U/L [facility] Blood Venous blood specimen / Unknown 07/14/2024 4:13 PM EDT 07/14/2024 5:36 PM EDT us Cary Gibson MD LAB BLOOD ORDERABLES Fin al Result [facility] [address] [place] [phone] [phone] * (ABNORMAL) Lipid Panel, Standard (07/14/2024 4:13 PM EDT) Triglycerides 168(H) <150 mg/dL [facility] Comment:Desirable Triglyceri de: less than 150 mg/dLBorderline High Triglyceride 150-199 mg/dLHigh Triglyceride: 200-499 mg/dLVery High Triglyceride: greater than or equal to 5OO mg/dL Cholesterol 177 <200 mg/dL [facility] Comment:Desirable Cholestero l: less than 200 mg/dLBorderline High Cholesterol: 200-239 mg/dLHigh Cholesterol: greater than 239 mg/dL LDL Cholesterol Calculated 103(H) <100 mg/dL [facility] Comment:Desirable LDL: less than 100 mg/dLNear Optimal/Above Optimal LDL: 110- 129 mg/dLBorderline High LDL: 130-159 mg/dLHigh LDL: 160-189 mg/dLVery High LDL: greater than or equal to 190 mg/dL HDL Cholesterol 41 >40 mg/dL [facility] Comment:Desirable HDL: great er than 40 mg/dL Note: This HDL assay may give artificially low results in patients with liver disease. Blood Venous blood specimen / Unknown 07/14/2024 4:13 PM EDT 07/14/2024 5:36 PM EDT Antoine Esparza MD LAB BLOOD ORDERABLES Final Result [facility] [address] [place] [phone] * Mammography (06/25/2021) Mammogram Bi-Rads Anatomical Region Laterality Modality Other Historical Provider HEALTH MAINTENANCE Final Result * Colonoscopy (03/15/2014) Colonoscopy Normal Historical Provider HEALTH MAINTENANCE Edited Result - Final from Last 3 Months or Most Recently Relevant to Health Maintenance Insurance [facility] C3 HSN FULL Care Teams Umbrella Mender Relationship Specialty Start Date End Date Antoine Tuttle MD [address] [place] [phone] PCP - General Internal Medicine 12/01/13
--- OUTSIDE RECORDS SUMMARY | 2024-07-15 16:06 | XMS_ITS | Encounter Summary ---
Author Organization [employer] [facility] Address [address] [place] [address] 7t [place] [address] Care Team Providers Care Collection Administrator Name Role Phone Antoine Tuttle MD Primary Care Provide r Encounter Details Date Type Department Care Team (Late st Contact Info) Description 08/14/2022 Abstract [facility] MEDICINE [address] [place] [address] Antoine Tuttle MD [address] [place], [place] [phone] Social History Tobacco Use Types Packs/Day Years [...] on filedocumented in this encounter Care Teams Collection Administrator Relationship Specialty Start Date End Date Antoine Tuttle MD [address] [place], [place] [phone] PCP - General Internal Medicine 12/01/13 documented as of this encounter
[2024-07-15 17:06] LABS: Leukocytes Stool Qualitative NEGATIVE (NEGATIVE)
[2024-07-15 17:14] LABS: CDiff Gene PCR NEGATIVE (Negative)
[2024-07-20 22:48] LABS: Fecal Fat Qualitative Normal (Normal)
== END 2024-07-15 16:04 | disposition home or self-care (01) ==
LOC: HO.HHCLNP 16:03
PROVIDERS: Visit Provider Internal Medicine
DX: R19.7 Diarrhea, unspecified (principal)
CPT/HCPCS: 82705; 87493; 89055

== ENCOUNTER 2024-07-26 13:31 | Outpatient (REF) | payer MEDICAID, SELFPAY ==
--- OUTSIDE RECORDS SUMMARY | 2024-07-26 16:00 | XMS_ITS | Clinical Summary ---
Author Organization [employer] Address [address] 7t [place] [address] Care Team Providers Care Clin Nurse Spec Name Role Phone Antoine Tuttle MD Primary Care Provide r Allergies Active Allergy Reactions Criticality Noted Date Comments Other Rash Low 12/04/2018 Espino (fruit) Medications loratadine (Claritin) 10 MG tablet Take 10 mg by mouth in the morning. 07/31/19 22 Active cyclobenzaprine (Flexeril) 5 MG tablet TAKE 1 TO 2 TABLETS BY MOUTH EVERY 8 HOURS NEEDED 09/19/19 22 Active clonazePAM (KlonoPIN) 0.5 MG tabletIndication s:Depressive disorder TAKE 1 TABLET BY MOUTH jeffy hora BEFORE de abordar el tosin y puede repetir mientras javier en el tosin para la ansiedad 10 tablet 12/04/19 23 Active diphenhydrAMINE (BENADryl) 25 MG capsule TAKE 1 CAPSULE BY MOUTH ONCE DAILY NEEDED FOR SLEEP 30 capsule 3 03/13/20 23 Active meloxicam (Mobic) 15 MG tabletIndication s:Acute pain of right shoulder Take 1 tablet (15 mg) by mouth in the morning. 30 tablet 3 05/14/19 24 Active hydroCHLOROthiaz dannie (HYDRODiuril) 25 MG tabletIndication s:Essential hypertension TAKE 1 TABLET BY MOUTH EVERY MORNING 90 tablet 01/29/20 24 Active lisinopril 20 MG tabletIndication s:Essential hypertension TAKE 1 TABLET BY MOUTH EVERY MORNING 90 tablet 01/29/20 24 Active tamsulosin (Flomax) 0.4 MG 24 hr capsule Take 1 capsule (0.4 mg) by mouth Once per day. 30 capsule 02/16/20 24 Active butalbital-aceta minophen-caffein e 50-325-40 MG tabletIndication s:History of headache TAKE 1 TABLET BY MOUTH EVERY 6 HOURS NEEDED 15 tablet 1 07/22/19 25 Active fluticasone (Flonase) 50 MCG/ACT nasal spray INSTILL 2 SPRAYS IN EACH NOSTRIL ONCE DAILY 48 g 1 07/22/19 25 Active omeprazole (PriLOSEC) [address] capsule TAKE 1 CAPSULE BY MOUTH EVERY DAY BEFORE A MEAL 90 capsule 1 07/22/19 25 Active fluticasone (Flonase) 50 MCG/ACT nasal spray INSTILL 2 SPRAYS IN EACH NOSTRIL ONCE DAILY 48 g 1 08/27/19 24 025 Discontinued omeprazole (PriLOSEC) [address] capsule TAKE 1 CAPSULE BY MOUTH EVERY DAY BEFORE A MEAL 90 capsule 1 08/27/19 24 025 Discontinued butalbital-aceta minophen-caffein e 50-325-40 MG tabletIndication s:History of headache TAKE 1 TABLET BY MOUTH EVERY 6 HOURS NEEDED 15 tablet 1 05/12/19 25 025 Discontinued amoxicillin-clav ulanate (Augmentin) 875-125 MG tablet Take 1 tablet by mouth 2 times daily for 7 days. 14 tablet 07/02/19 25 025 Active Problems Problem Noted Date Diagnosed Date [...] EDT): Pt with varicose veins,will refer to Vacular surgeon [facility] health care 12/09/2022 Assessment & Plan (08/13/2023 3:13 PM EDT): Mammogram: 11/21/2022 Pap Smear: s/p SWATI 2015 Colonoscopy: [facility]. Dr Corona, 2014 Normal Vaccines:. Td: 07/18/2014 Assessment & Plan (12/09/2022 2:15 PM EDT): Mammogram: 11/21/2022 Pap Smear: s/p SWATI 2015 Colonoscopy: [facility]. Dr Corona, 2014 Normal Vaccines:. Td: [...] Not complaining Negative work up as per [facility] urology that included a CT scan [...] facial numbness, tingling and heaviness, seen at [facility] work up was unrevealing. As part of her work up she had an MRI of brain was negative pt was referred Neurology, last seen 08/2020 Lyme antibodies were negative Pt was seen by Neurology, she had an MRI of the brain at [facility] that showed: a small incidental meningioma 11 [...] facial numbness, tingling and heaviness, seen at [facility] work up was unrevealing. As part of her work up she had an MRI of brain was negative pt was referred Neurology, last seen 08/2020 Lyme antibodies were negative Pt was seen by Neurology, she had an MRI of the brain at [facility] that showed: a small incidental meningioma 11 [...] associated symptoms. she was seen recently at [facility] work up was unrevealing. Of note previously [...] a repeat MRI of the brain at [facility] that showed: a small incidental meningioma 11 [...] is getting ready to go to the to spend the holidays She has also [...] Encounters Date Type Department Care Team Description 07/21/2024 Telephone [facility] MEDICINE [address] [place] [address] Antoine Tuttle MD Results 07/21/2024 Refill [facility] MEDICINE [address] [place] [address] Antoine Tuttle MD 07/19/2024 Refill [facility] CHC MED & PEDS [address] [place], [place] [phone] Name, MD Benjamin History of headache 07/15/2024 Orders Only [facility] MEDICINE [address] [place] [address] Cary Gibson MD 07/15/2024 Telephone [facility] WALK-IN CENTER [address] [place] [address] Cary Gibson MD Results (TEST NOT PERFORMED) 07/13/2024 5:40 PM EDT Office Visit [facility] WALK-IN CENTER [address] [place] [phone] Cary Gibson MD Diarrhea, unspecified type (Primary Dx); Periumbilical mass 07/01/2024 2:20 PM EDT Office Visit [facility] [address] [place] [phone] Melissa Worthy MD Left leg swelling (Primary Dx); Neck pain 06/17/2024 Population Health Risk Score [facility] () Department [address] [phone] Provider, Population Health Generic 06/08/2024 Telephone [facility] MEDICINE [address] [place], [place] [phone] Antoine Tuttle MD September05/12/2024 Refill [facility] CH[facility] MED & PEDS [address] [place], [place] [phone] Antoine Tuttle MD History of headache from [...] the past 12 months, has t he [employer] gas, oil or water company threatened to [...] Vaccines (1 of 2) 07/26/2011 COVID-19 Vaccine ( season) 2023 05/01/2021, 08/14/2020, 07/17/2020 Influenza Vaccine (#1) 2023 04/05/2019 Colonoscopy 03/15/2024 03/15/2014 Colorectal Cancer Screening 03/15/2024 DTaP/Tdap/Td Vaccines (2 - Td or Tdap) 07/18/2024 07/18/2014, 12/20/2002 SDOH Screening 08/03/2024 08/04/2023 Depression Screening 11/18/2024 11/19/2023, 11/19/19 24 Mammogram 11/21/2024 11/21/2022, 11/04, 06/25/2021, Additional history exists Tobacco Screening 07/13/2025 07/13/2024 Lipid Panel 07/14/2029 07/14/2024, 08/05, 08/05/2022, Additional history exists RSV Patients and [...] Procedure Name Priority Date/Time Associated Diagnosis Comments LEUKOCYTES STOOL QUALITATIVE Routine 07/15/2024 2:15 PM EDT CDIFF GENE PCR Routine 07/15/2024 2:15 PM EDT Diarrhea, unspecified type FECAL FAT, QUALITATIVE Routine 07/15/2024 2:15 PM EDT Diarrhea, unspecified type HEPATIC FUNCTION PANEL Routine 07/14/2024 4:13 PM EDT Diarrhea, unspecified type LIPID PANEL, STANDARD Routine 07/14/2024 4:13 PM EDT Essential hypertension Mixed hyperlipidemia HM MAMMOGRAPHY Routine 06/25/2021 COLONOSCOPY Routine 03/15/2014 from Last 3 Months or Most Recently Relevant to Health Maintenance Results * Leukocytes Stool Qualitative (07/15/2024 2:15 PM EDT) Leukocytes Stool Qualitative NEGATIVE NEGATIVE [facility] 07/15/2024 2:15 PM EDT 07/15/2024 4:09 PM EDT us Cary Gibson MD LAB BODY FLUIDS AND STOO LS ORDERABLES Final Result Performing Organization Address [facility] Co de Phone Number [facility] [address] [place] [address] [phone] * CDiff Gene PCR (07/15/2024 2:15 PM EDT) CDiff Gene PCR NEGATIVE Negative [facility] Comment:If C. difficile stro ngly suspected despite one negativetest, a second test may be sent vs. empiric treatment forC. difficile infection. Stool 07/15/2024 2:15 PM EDT 07/15/2024 4:08 PM EDT us Cary Gibson MD LAB BODY FLUIDS AND STOO LS ORDERABLES Final Result Performing Organization Address [facility]/ZIP Co de Phone Number [facility] [address] [place] [phone] * Fecal Fat, Qualitative (07/15/2024 2:15 PM EDT) Fecal Fat, Qualitative Normal Normal [facility] Comment:THIS TEST WAS PERFOR MED AT:[email or web address] [place] [email or web address] MANDUJANO MD,PHD Stool Rectal contents / Unknown 07/15/2024 2:15 PM EDT 07/15/2024 4:08 PM EDT us Cary Gibson MD LAB BLOOD ORDERABLES Fin al Result Performing Organization Address City/[facility]/ZIP Co de Phone Number [facility] [address] [place] [address] [phone] * (ABNORMAL) Hepatic Function Panel (07/14/2024 4:13 PM EDT) Pathologist [facility] Bilirubin, Total 0.3 0.0 - 1.0 mg/dL [facility] Bilirubin, Direct 0.1 0.0 - 0.5 mg/dL [facility] Aspartate Amino Transferase 53(H) 5 - 31 U/L [facility] Alanine Aminotransferase 86(H) 0 - 31 U/L [facility] Total Protein 7.2 6.5 - 8.0 g/dL [facility] Albumin Level 4.2 3.5 - 5.0 g/dL [facility] Alkaline Phosphatase 72 39 - 117 U/L [facility] Blood Venous blood specimen / Unknown 07/14/2024 4:13 PM EDT 07/14/2024 5:36 PM EDT us Cary Gibson MD LAB BLOOD ORDERABLES Fin al Result [facility] [address] [place], [place] [phone] * (ABNORMAL) Lipid Panel, Standard (07/14/2024 4:13 PM EDT) Triglycerides 168(H) <150 mg/dL [facility] Comment:Desirable Triglyceri de: less than 150 mg/dLBorderline High Triglyceride 150-199 mg/dLHigh Triglyceride: 200-499 mg/dLVery High Triglyceride: greater than or equal to 5OO mg/dL Cholesterol 177 <200 mg/dL [facility] Comment:Desirable Cholestero l: less than 200 mg/dLBorderline High Cholesterol: 200-239 mg/dLHigh Cholesterol: greater than 239 mg/dL LDL Cholesterol Calculated 103(H) <100 mg/dL [facility] Comment:Desirable LDL: less than 100 mg/dLNear Optimal/Above Optimal LDL: 110- 129 mg/dLBorderline High LDL: 130-159 mg/dLHigh LDL: 160-189 mg/dLVery High LDL: greater than or equal to 190 mg/dL HDL Cholesterol 41 >40 mg/dL [facility] Comment:Desirable HDL: great er than 40 mg/dL Note: This HDL assay may give artificially low results in patients with liver disease. Blood Venous blood specimen / Unknown 07/14/2024 4:13 PM EDT 07/14/2024 5:36 PM EDT Antoine Esparza MD LAB BLOOD ORDERABLES Final Result [facility] [address] [place] [phone] * Mammography (06/25/2021) Mammogram Bi-Rads Anatomical Region Laterality Modality Other Historical Provider HEALTH MAINTENANCE Final Result * Colonoscopy (03/15/2014) Colonoscopy Normal Historical Provider HEALTH MAINTENANCE Edited Result - Final from Last 3 Months or Most Recently Relevant to Health Maintenance [facility] F[facility] Care Teams Clin Nurse Spec Relationship Specialty Start Date End Date Antoine Tuttle MD [address] [place] [phone] PCP - General Internal Medicine 12/01/13
--- OUTSIDE RECORDS SUMMARY | 2024-07-26 16:00 | XMS_ITS | Encounter Summary ---
Author Organization [employer] Address [address] 7t [place] [address] Care Team Providers Care Therapy Tech Name Role Phone Antoine Tuttle MD Primary Care Provide r Reason for Visit * Reason Comments Med Refill Encounter Details Date Type Department Care Team (Late st Contact Info) Description 07/19/2024 Refill [facility] CHC MED & PEDS [address] [place], [place] [phone] Name, MD Benjamin [address] [place] [address] History of headache Social History Tobacco Use Types Packs/Day Years [...] as of this encounter Visit Diagnoses Diagnosis History of headache documented in this encounter Additional Health Concerns Assessment Noted Time PHQ-9 Depression Total Score: 0 11/19/19 24 11:09 AM EDT documented as of this encounter Care Teams Therapy Tech Relationship Specialty Start Date End Date Antoine Tuttle MD [address] [place] [phone] PCP - General Internal Medicine 12/01/13 documented as of this encounter
--- OUTSIDE RECORDS SUMMARY | 2024-07-26 16:00 | XMS_ITS | Encounter Summary ---
Author Organization [employer] Address [address] 7t [place] [address] Care Team Providers Care Plastics Supervisor Name Role Phone Antoine Tuttle MD Primary Care Provide r Reason for Visit * Reason Onset Date Comments Results 07/21/2024 Encounter Details Date Type Department Care Team ([facility] st Contact Info) Description 07/21/2024 Telephone [facility] MEDICINE [address] [place], [place] [phone] Antoine Tuttle MD [address] [place] [address] Results Social History Tobacco Use Types Packs/Day Years [...] encounter Miscellaneous Notes * Telephone Encounter - Ana Nayak RN - 07/21/2024 11:20 AM EDT Noted. Patient presented to red team FD in regards to results. RN discussed results with patient. Patient verbalized understanding and reports her diarrhea has improved but still continues when eating certain foods. Patient informed abd US was sent to [facility] on 07/14/24 and patient will receive a TC inregards to scheduling of appointment. Patient reports she would like abd US order to go to [facility] as it is closer to her home. RN advised patient, RN would send message to staff to re-send order to [facility]. Patient advised she will receive a call from [facility] with scheduling of US appointment. Patient verbalized understanding. Patient to f/u PRN. ----- Message from Cary Gibson MD sent at 07/20/2024 7:25 PM EDT ----- Labs on 07/14/2024 showed mildly elevated LFTs, C. difficile is negative and other tests are pending. Please call patient and ask her regarding symptoms, tell her that for elevated LFTs I will wait for the result of the ultrasound, no need to start any treatment at this time as elevation of liver test could be related to infectious diarrhea. * Telephone Encounter - Krista Tadeo - 07/21/2024 10:45 AM EDT Tc from pt retuning phone call. * Telephone Encounter - Katy Sanders RN - 07/21/2024 9:25 AM EDT TC placed to patient [phone] regarding below message. RN unable to leave VM due to VM is full.RN will re-attempt in PM. TC placed to patient sister(Suzanne) not on HIPAA using BLS #ID [id number]. RN inquired if patient was with her and if she talks to her to have her CB Red team nurses. ----- Message from Cary Gibson MD sent at 07/20/2024 7:25 PM EDT ----- Labs on 07/14/2024 showed mildly elevated LFTs, C. difficile is negative and other tests are pending. Please call patient and ask her regarding symptoms, tell her that for elevated LFTs I will wait for the result of the ultrasound, no need to start any treatment at this time as elevation of liver test could be related to infectious diarrhea. documented in this encounter Plan of Treatment Not on file documented as of this encounter Visit Diagnoses Not on filedocumented in this encounter Additional Health Concerns Assessment Noted Time PHQ-9 Depression Total Score: 0 11/19/19 24 11:09 AM EDT documented as of this encounter Care Teams Plastics Supervisor Relationship Specialty Start Date End Date Antoine Tuttle MD [address] [place] [phone] PCP - General Internal Medicine 12/01/13 documented as of this encounter
--- OUTSIDE RECORDS SUMMARY | 2024-07-26 16:00 | XMS_ITS | Encounter Summary ---
Author Organization [employer] Address [address] 7t [place] [address] Care Team Providers Care Resident In Diagnostic Radiology Name Role Phone Antoine Tuttle MD Primary Care Provide r Reason for Visit * Reason Onset Date Comments Appointment Request 04/08/2023 Medication Reaction 04/08/2023 Encounter Details Date Type Department Care Team ([facility] st Contact Info) Description 04/08/2023 Telephone [facility] MEDICINE [address] [place], [place] [phone] Antoine Tuttle MD [address] [place], [place] [phone] Appointment Request; Medication Reaction Social History Tobacco [...] PT states that she has been taking Dhdknypvys-yopehluhnihmk-oipsgidj 50-325-40 MG TABLET for headaches and lately she has been waking up everyday with headaches, she would like a possible MG increase or a higher quantity. * Telephone Encounter - Stas Esparza - 04/08/2023 8:33 AM EST Tc from patient calling to schedule a follow up appt for HTN however contract writer does not see anything available documented in this encounter Plan of Treatment Not on file documented as of this encounter Visit Diagnoses Not on filedocumented in this encounter Care Teams Resident In Diagnostic Radiology Relationship Specialty Start Date End Date Antoine Tuttle MD [address] [place] [phone] PCP - General Internal Medicine 12/01/13 documented as of this encounter
--- OUTSIDE RECORDS SUMMARY | 2024-07-26 16:00 | XMS_ITS | Encounter Summary ---
Author Organization [employer] Address [address] [facility] [address]t [place] [address] Care Team Providers Care Employment Advisor Name Role Phone Antoine Tuttle MD Primary Care Provide r Reason for Visit * Reason Comments Med Refill Encounter Details Date Type Department Care Team ([facility] st Contact Info) Description 07/21/2024 Refill [facility] MEDICINE [address] [place], [place] [phone] Antoine Tuttle MD [address] [place] [address] Social History Tobacco Use Types Packs/Day Years [...] documented as of this encounter Care Teams Employment Advisor Relationship Specialty Start Date End Date Antoine Tuttle MD [address] [place] [phone] PCP - General Internal Medicine 12/01/13 documented as of this encounter
--- OUTSIDE RECORDS SUMMARY | 2024-07-26 16:00 | XMS_ITS | Encounter Summary ---
Author Organization [employer] [facility] Address [address] [place] [address] 7t [place] [address] Care Team Providers Care School Bus Monitor Name Role Phone Antoine Tuttle MD Primary Care Provide r Encounter Details Date Type Department Care Team (Latest Contact Info) Description 10/22/[address] [facility] Dental, Provider, DDS Social History Tobacco [...] on filedocumented in this encounter Care Teams School Bus Monitor Relationship Specialty Start Date End Date Antoine Tuttle MD [address] [place] [phone] PCP - General Internal Medicine 12/01/13 documented as of this encounter
--- OUTSIDE RECORDS SUMMARY | 2024-07-26 16:00 | XMS_ITS | Encounter Summary ---
Author Organization [employer] [facility] Address [address] [place] [address] 7t [place] [address] Care Team Providers Care Corset Fitter Name Role Phone Antoine Tuttle MD Primary Care Provide r Encounter Details Date Type Department Care Team (Late st Contact Info) Description 08/14/2022 Abstract [facility] MEDICINE [address] [place] [address] Antoine Tuttle MD [address] [place], [place] [phone] Social History Tobacco Use Types Packs/Day Years [...] on filedocumented in this encounter Care Teams Corset Fitter Relationship Specialty Start Date End Date Antoine Tuttle MD [address] [place], [place] [phone] PCP - General Internal Medicine 12/01/13 documented as of this encounter
[2024-07-26 19:40] LABS: Alanine Aminotransferase 41 U/L (0-31); Albumin Level 4.2 g/dL (3.5-5.0); Aspartate Amino Transferase 31 U/L (5-31); Bilirubin Direct 0.1 mg/dL (0.0-0.5); Bilirubin Total 0.3 mg/dL (0.0-1.0); Gamma Glutamyl Transpeptidase 34 U/L (7-33); Total Protein 7.3 g/dL (6.5-8.0)
[2024-07-26 20:00] LABS: Alkaline Phosphatase 75 U/L (39-117)
[2024-07-27 08:47] LABS: Syphilis Screen Nonreactive (Nonreactive)
[2024-07-28 04:28] LABS: HBS Num1 0.72 mIU/mL (0-7.99); HBc Num1 0.06 S/CO (0.00-0.79); HBsAGNum1 0.35 S/CO (0.00-0.99); HIV AB/AG Nonreactive (Nonreactive); HIV Num 1 0.05 S/CO (0.00-0.99); Hepatitis A Antibody IgM 0.18 Index (0-0.79); Hepatitis B Core Antibody Nonreactive (Nonreactive); Hepatitis B Surface Antigen Negative (Negative); ~HepC Num1 0.06 S/CO (0.00-0.79); ~Hepatitis A Antibody IgM Nonreactive (Nonreactive); ~Hepatitis B Surface Antibody NONREACTIVE (Nonreactive); ~Hepatitis C Antibody Nonreactive (Nonreactive)
== END 2024-07-26 13:32 | disposition home or self-care (01) ==
LOC: HO.HHCL 13:31
PROVIDERS: Visit Provider Internal Medicine
DX: R74.01 Elevation of levels of liver transaminase levels (principal)
CPT/HCPCS: 36415; 80076; 82977; 86704; 86706; 86709; 86780; 86803; 87340; 87389